=== PATIENT | male | born 1975 | race African-American/Black ===

== ENCOUNTER 2021-03-05 01:36 | Inpatient (IN) | payer MEDICAID ==
[~2021-03-05] VITALS: Ht 193 cm; Wt 74.8 kg
--- NOTE | 2021-03-05 01:56 | NUR ---
PT BIBRA C/O ABD PAIN WITH N/V/D X3 DAYS. PT AAOX4 BREATHING EVENLY AND UNLABORED. PT ATTACHED TO MONITOR AND POX. PT GIVEN BLANKET AND CALL LIGHT WITHIN REACH
[2021-03-05] MEDS ORDERED: HYDROMORPHONE 1 MG/1 ML DISP.SYRIN ONE (02:29)
[2021-03-05] MEDS ORDERED: ONDANSETRON HCL/PF 4 MG/2 ML VIAL ONE (02:29)
[2021-03-05] MEDS ORDERED: ONDANSETRON HCL/PF 4 MG/2 ML VIAL IVP ONE (02:30)
[2021-03-05] MEDS ORDERED: HYDROMORPHONE INJ 2 MG/ML DISP.SYRIN IV ONE (02:30)
[2021-03-05] MEDS ORDERED: IV NS 0.9% 1,000 ML BAG IV ONE (02:30)
--- NOTE | 2021-03-05 02:30 | NUR ---
BLOOD OBTAINED AND SENT TO LAB
[2021-03-05 02:48] LABS: EOSINOPHILS % (AUTO) 0.1 % (0.0-6.0); MONOCYTES # (AUTO) 1.2 K/uL (0.1-1.30); NEUTROPHILS # (AUTO) 4.6 K/uL (1.8-8.9); WHITE BLOOD COUNT (AUTO) 7.6 K/uL (4.3-11.0)
[2021-03-05 03:01] LABS: ALBUMIN 2.9 g/dL (3.4-5.0); BILIRUBIN,DIRECT 0.1 mg/dL (0.0-0.2); BILIRUBIN,TOTAL 0.3 mg/dL (0.2-1.0); CALCIUM, SERUM 8.4 mg/dL (8.5-10.1); CREATININE 2.4 mg/dL (0.6-1.3); POTASSIUM 3.4 mmol/L (3.5-5.1); TOTAL PROTEIN, SERUM 9.1 g/dL (6.4-8.2)
[2021-03-05] MEDS ORDERED: IV NS 0.9% 250 ML IV ONE (03:01)
[2021-03-05] MEDS ORDERED: IOHEXOL-300 100 ML VIAL IV ONE (03:01)
[2021-03-05 03:20] LABS: BASOPHILS % (AUTO) 0.2 % (0.0-2.0); HEMATOCRIT 48 % (39-51); HEMOGLOBIN 15.7 g/dL (13.5-17.5); LYMPHOCYTES # (AUTO) 1.9 K/uL (0.8-4.8); LYMPHOCYTES % (AUTO) 24.7 % (20.0-44.0); MEAN CORPUSCULAR HGB CONC 33 g/dl (31.0-36.0); MEAN CORPUSCULAR VOLUME 79 fL (80-96); MONOCYTES % (AUTO) 15.2 % (2.0-12.0); NEUTROPHILS % (AUTO) 59.8 % (43.0-81.0); PLATELET COUNT (AUTO) 136 K/uL (150-450); RED BLOOD CELL COUNT(AUTO) 6.07 MIL/uL (4.5-6.0)
--- NOTE | 2021-03-05 03:25 | NUR ---
RETURNED FROM RADIOLOGY
--- NOTE | 2021-03-05 04:10 | NUR ---
CALLED LAB FOR COVID SWAB
[2021-03-05 05:50] LABS: BILIRUBIN,URINE NEGATIVE (NEGATIVE); COLOR,URINE YELLOW (YELLOW); LEUKOCYTE ESTERASE ,URINE NEGATIVE (NEGATIVE); NITRITE, URINE NEGATIVE (NEGATIVE); PH,URINE 5.5 (5.0-8.0); PROTEIN,URINE 100 mg/dl (NEGATIVE); UGLUCOSE NEGATIVE (NEGATIVE); UROBILINOGEN,URINE 0.2 EU/dL (0.2)
[2021-03-05] MEDS: PIPERACILLIN /TAZOBACTAM 3.375 G in IV D5W 50 ML IV ONE ×2 (08:00→09:45)
--- NOTE | 2021-03-05 09:00 | NUR ---
DR SHEPARD ON THE PHONE WITH DR MCGRATH
[2021-03-05] MEDS ORDERED: MAGNESIUM HYDROXIDE 30 ML UDC PO PRN (09:30)
[2021-03-05] MEDS ORDERED: MAG HYDROX/AL HYDROX/SIMETH 30 ML UDC PO PRN (09:30)
[2021-03-05] MEDS ORDERED: Z GUARD REMEDY 4 OZ OINT TP PRN (09:30)
[2021-03-05] MEDS ORDERED: ONDANSETRON HCL/PF 4 MG/2 ML VIAL IVP PRN (09:30)
[2021-03-05] MEDS ORDERED: ZOLPIDEM TARTRATE 5 MG TABLET PO PRN (09:30)
[2021-03-05] MEDS: IV NS 0.9% 1,000 ML IV SCH ×2 (09:45→19:30)
[2021-03-05 10:18] LABS: BACTERIA,URINE Few /HPF (None Seen); SQUAMOUS EPITHELIAL CELL,UR Rare /HPF (None Seen)
[2021-03-05 10:19] LABS: WBC,URINE 0-4 /HPF (0-3)
[2021-03-05 10:20] LABS: FINE GRANULAR CASTS,URINE Rare /LPF (None Seen)
--- NOTE | 2021-03-05 11:50 | NUR ---
REQUESTED BED FROM NURSING SUP
[2021-03-05 12:12] LABS: BAND % (MANUAL) 3 % (0.0-5.0); LYMPHOCYTES % (MANUAL) 23 % (16-48); METAMYELOCYTES % 1 % (0-0); MONOCYTES % (MANUAL) 17 % (0-11.0); NEUTROPHILS % (MANUAL) 56 (42-76)
--- NOTE | 2021-03-05 13:24 | NUR ---
RAC #20G S/L DISLODGED. INSERTED RAC #18G S/L; PATENT AND INTACT.
[2021-03-05] MEDS: PIPERACILLIN /TAZOBACTAM 3.375 G in IV D5W 50 ML IV SCH ×2 (14:46→20:00)
--- NOTE | 2021-03-05 15:34 | NUR ---
PT NPO; PER MD'S ORDERS. EDUCATED PT TO STAY NPO. IVF NS 100ML/HR RAC #18G S/L INFUSING
--- NOTE | 2021-03-05 19:15 | NUR ---
PT SLEEPING, ATTACHED TO MONITOR AND POX. BREATHING EVENLY AND UNLABORED
[2021-03-05] MEDS ORDERED: PIPERACILLIN /TAZOBACTAM 3.375 G VIAL IV ONE (20:09)
--- NOTE | 2021-03-05 23:22 | NUR ---
Patient is resting comfortably in bed with eyes closed. Easily aroused. VSS
[2021-03-06] MEDS: PIPERACILLIN /TAZOBACTAM 3.375 G in IV D5W 50 ML IV SCH ×4 (02:00→20:24)
[2021-03-06] MEDS ORDERED: PIPERACILLIN /TAZOBACTAM 3.375 G VIAL IV ONE (02:08)
--- NOTE | 2021-03-06 03:15 | NUR ---
PT USED BEDSIDE COMMODE. NEEDS MET
[2021-03-06 05:01] LABS: BASOPHILS % (AUTO) 0.1 % (0.0-2.0); HEMATOCRIT 40 % (39-51); HEMOGLOBIN 13.1 g/dL (13.5-17.5); LYMPHOCYTES # (AUTO) 1.4 K/uL (0.8-4.8); MEAN CORPUSCULAR HGB CONC 33 g/dl (31.0-36.0); MEAN CORPUSCULAR VOLUME 79 fL (80-96); MONOCYTES # (AUTO) 1.4 K/uL (0.1-1.30); MONOCYTES % (AUTO) 23.1 % (2.0-12.0); NEUTROPHILS # (AUTO) 3.4 K/uL (1.8-8.9); NEUTROPHILS % (AUTO) 53.8 % (43.0-81.0); PLATELET COUNT (AUTO) 154 K/uL (150-450); RED BLOOD CELL COUNT(AUTO) 5.05 MIL/uL (4.5-6.0); WHITE BLOOD COUNT (AUTO) 6.3 K/uL (4.3-11.0)
[2021-03-06] MEDS: IV NS 0.9% 1,000 ML IV SCH ×2 (05:30→14:56)
[2021-03-06 05:37] LABS: CREATININE 1.8 mg/dL (0.6-1.3); MAGNESIUM 2.4 mg/dL (1.8-2.4); PHOSPHORUS 2.7 mg/dL (2.5-4.9); POTASSIUM 3.7 mmol/L (3.5-5.1)
--- NOTE | 2021-03-06 06:44 | NUR ---
pt in bed sleeping. nad noted.
--- NOTE | 2021-03-06 07:21 | NUR ---
GAVE REPORT TO GIOVANY LUU FOR PHILIP
--- NOTE | 2021-03-06 07:48 | NUR ---
PT ASSIGNED TO BED 109
--- NOTE | 2021-03-06 07:48 | NUR ---
Dwight santillan in [facility] - 03/06/21 at 0805 by RENETTA PT ASSIGNED TO [facility] [phone]
--- NOTE | 2021-03-06 08:05 | NUR ---
REPORT GIVEN TO SCOTTY
--- NOTE | 2021-03-06 09:22 | NUR ---
RN NOTE RECEIVED PATIENT FROM ER, REPORT TAKEN FROM LUIS M ADAIR. PATIENT AWAKE, ALERT/ORIENTED X 4, ABLE TO MAKE NEEDS KNOWN. BREATHING EVEN AND UNLABORED. NO SOB OR ANY RESPIRATORY DISTRESS NOTED. SKIN IS INTACT. VITAL SIGNS: TEMP-97.7, O2-100, HR-93, RR-18, BP-117/72. ALL SAFETY PRECAUTIONS IN PLACE. BED LOCKED, IN LOWEST POSITION WITH SIDE RAILS UP. CALL LIGHT WITHIN REACH OF PATIENT. WILL CONTINUE TO MONITOR.
[2021-03-06 12:00] VITALS: BP 108/58
[2021-03-06 13:37] LABS: BAND % (MANUAL) 8 % (0.0-5.0); LYMPHOCYTES % (MANUAL) 22 % (16-48); MONOCYTES % (MANUAL) 17 % (0-11.0); NEUTROPHILS % (MANUAL) 53 (42-76)
--- NOTE | 2021-03-06 18:46 | NUR ---
RN CLOSING NOTES PATIENT IN STABLE CONDITION THROUGHOUT SHIFT. NO SIGNIFCANT CHANGES THROUGHOUT SHIFT. PATIENT REMAINS ON ROOM AIR, TOLERATING WELL. BREATHING EVEN AND UNLABORED. NO SOB OR RESPIRATORY DISTRESS NOTED. IV ACCESS ON RIGHT FA #18, PATENT AND INTACT, INFUSING NS @ 100 ML/HR, TOLERATING WELL. PATIENT MAINTAINED ON NPO STATUS THROUGHOUT SHIFT. ALL DUE MEDS GIVEN ORDERED, TOLERATED WELL. ALL NEEDS MET. KEPT PATIENT CLEAN, DRY AND COMFORTABLE. APPLICABLE ISOLATION PRECAUTIONS MAINTAINED. ALL SAFETY MEASURES IMPLEMENTED. HOB ELEVATED. BED IN LOWEST POSITION, LOCKED WITH SIDE RAILS UP. CALL LIGHT WITHIN REACH OF PATIENT. WILL ENDORSE TO ONCOMING NURSE FOR CONTINUITY OF CARE.
--- NOTE | 2021-03-06 19:15 | NUR ---
RN OPENING NOTE PATIENT IN BED, EYES CLOSED. EASILY AWAKENED. A/O X 4. NPO STATUS AT THIS TIME. PATIENT -RE-EDUCATED ON NPO STATUS, POC. PATIENT KEEPS INSISTING ON HAVING SOME WATER OR FOOD. PATIENT ON RA, TOLERATING WELL. IVF RUN CAIT, IV ACCESS INTACT AND PATENT. SAFETY MEASURES IN PLACE: BED LOCKED AND IN LOWEST POSITION CALL LIGHT WITHINR EACH, SIDE RAILS UP. WILL MONITOR PATIENT CLOSELY.
[2021-03-06 20:00] VITALS: BP 129/79
[2021-03-07] MEDS: PIPERACILLIN /TAZOBACTAM 3.375 G in IV D5W 50 ML IV SCH ×4 (02:03→20:05)
[2021-03-07] MEDS: IV NS 0.9% 1,000 ML IV SCH ×3 (02:04→22:30)
[2021-03-07 04:00] VITALS: BP 107/67
--- NOTE | 2021-03-07 06:17 | NUR ---
RN NOTE WOUND CONSULT ORDERED. PATIENT REFUSED PICTURE TAKING OF WOUND AT THIS TIME. STILL UPSET HE IS NOT ABLE TO EAT.
--- NOTE | 2021-03-07 06:56 | NUR ---
RN CLOSING NOTE PATIENT IN BED, EYES CLOSED. EASILY AWAKENED. A/O X 4. NO SIGNIFICANT CHANGES IN PATIENT CONDITION. PATIENT STILL HAVING DIARRHEA, NO VOMITING. SAFETY MEASURES MAINTAINED. ALL NEEDS MET AND ATTENDED, ALL ORDERS CARRIED OUT. RFA 18 G PATENT AND INTACT WITH NS @ 100 ML/HR. WILL ENDORSE TO DAY SHIFT NURSE FOR PHILIP.
[2021-03-07 07:24] LABS: CREATININE 1.8 mg/dL (0.6-1.3); POTASSIUM 3.3 mmol/L (3.5-5.1); TOTAL PROTEIN, SERUM 7.2 g/dL (6.4-8.2)
--- NOTE | 2021-03-07 07:30 | NUR ---
RN OPENING NOTES RECEIVED PT IN BED AWAKE, A/O X4, ABLE TO MAKE NEEDS KNOWN, NO SIGNS OF ACUTE DISTRESS NOTED. ON ROOM AIR TOLERATING WELL, NO SOB NOTED. IV ACCESS ON RFA INTACT AND PATENT, NS @100 ML/HR RUNNING. NO C/O PAIN OR DISCOMFORT AT THIS TIME. ASKING FOR FOOD, EXPLAINED REGARDING NPO STATUS. SAFETY MEASURE IN PLACE, BED LOCKED AND IN LOWEST POSITION, SR UP X2, CALL LIGHT PLACED WITHIN EASY REACH. WILL CONTINUE TO MONITOR.
[2021-03-07 07:39] LABS: BASOPHILS % (AUTO) 0.2 % (0.0-2.0); EOSINOPHILS % (AUTO) 0.2 % (0.0-6.0); HEMATOCRIT 39 % (39-51); HEMOGLOBIN 12.6 g/dL (13.5-17.5); LYMPHOCYTES # (AUTO) 2.2 K/uL (0.8-4.8); LYMPHOCYTES % (AUTO) 27.8 % (20.0-44.0); MEAN CORPUSCULAR HGB CONC 33 g/dl (31.0-36.0); MEAN CORPUSCULAR VOLUME 78 fL (80-96); MONOCYTES # (AUTO) 2.4 K/uL (0.1-1.30); MONOCYTES % (AUTO) 31.2 % (2.0-12.0); NEUTROPHILS # (AUTO) 3.2 K/uL (1.8-8.9); NEUTROPHILS % (AUTO) 40.6 % (43.0-81.0); PLATELET COUNT (AUTO) 187 K/uL (150-450); RED BLOOD CELL COUNT(AUTO) 4.98 MIL/uL (4.5-6.0); WHITE BLOOD COUNT (AUTO) 7.8 K/uL (4.3-11.0)
[2021-03-07 08:17] LABS: LYMPHOCYTES % (MANUAL) 32 % (16-48); MONOCYTES % (MANUAL) 21 % (0-11.0); NEUTROPHILS % (MANUAL) 47 (42-76)
--- NOTE | 2021-03-07 08:55 | NUR ---
RN NOTES SEEN BY DR. MCGRATH WITH ORDER TO UPGRADE DIET TO FULL LIQUIDS, ORDER CARRIED OUT. PATIENT AWARE OF NEW DIET ORDER.
[2021-03-07] MEDS ORDERED: POTASSIUM CHLORIDE 10 MEQ TABLET.SA PO ONE (10:00)
[2021-03-07 11:06] LABS: *BASOS 1 % (Not Estab.); *BASOS, ABSOLUTE 0.1 x10E3/uL (0.0-0.2); *COMMENTS Note: (.); *EOS 0 % (Not Estab.); *HCT 40.8 % (37.5-51.0); *HGB 12.9 g/dL (13.0-17.7); *IMMATURE GRANULOCYTES 1 % (Not Estab.); *LYMPHOCYTES 26 % (Not Estab.); *LYMPHS, ABSOLUTE 1.7 x10E3/uL (0.7-3.1); *MCH 24.6 pg (26.6-33.0); *MCHC 31.6 g/dL (31.5-35.7); *MCV 78 fL (79-97); *MONOCYTES 18 % (Not Estab.); *MONOS, ABSOLUTE 1.2 x10E3/uL (0.1-0.9); *NEUTROPHILS 54 % (Not Estab.); *NEUTROPHILS, ABSOLUTE 3.5 x10E3/uL (1.4-7.0); *PLT 158 x10E3/uL (150-450); *RBC 5.24 x10E6/uL (4.14-5.80); *RDW 15.8 % (11.6-15.4)
[2021-03-07 12:00] VITALS: BP 111/67
[2021-03-07 13:03] LABS: CREATININE, URINE 57.4 MG/DL (30.0-125.0); URINE TOTAL PROTEIN 28.7 mg/dL (0-11.9)
[2021-03-07 13:12] LABS: BILIRUBIN,URINE NEGATIVE (NEGATIVE); COLOR,URINE YELLOW (YELLOW); LEUKOCYTE ESTERASE ,URINE NEGATIVE (NEGATIVE); NITRITE, URINE NEGATIVE (NEGATIVE); PROTEIN,URINE NEGATIVE (NEGATIVE); UGLUCOSE NEGATIVE (NEGATIVE); UROBILINOGEN,URINE 0.2 EU/dL (0.2)
[2021-03-07 13:17] LABS: BACTERIA,URINE Rare /HPF (None Seen); SQUAMOUS EPITHELIAL CELL,UR Few /HPF (None Seen); WBC,URINE NONE SEEN /HPF (0-3)
[2021-03-07 15:06] LABS: *% CD 4 POS. LYMPH 19.5 % (30.8-58.5); *% CD 8 POS. LYMPH 65.2 % (12.0-35.5); *ABSOLUTE CD 4 HELPER 332 /uL (359-1519); *ABSOLUTE CD 8 SUPPRESSOR 1108 /uL (109-897)
[2021-03-07 15:42] LABS: EOSINOPHIL,URINE None Seen
--- NOTE | 2021-03-07 18:40 | NUR ---
RN CLOSING NOTES PT RESTING IN BED, A/O X4, ABLE TO MAKE NEEDS KNOWN, NO SIGNS OF ACUTE DISTRESS NOTED. REMAINS ON ROOM AIR TOLERATING WELL, NO SOB NOTED. IV ACCESS ON RFA INTACT AND PATENT, NS @100 ML/HR RUNNING. ALL DUE MEDS GIVEN. NO C/O PAIN OR DISCOMFORT AT THIS TIME. DIET UPGRADED TO FULL LIQUIDS. NOTED PATIENT REMOVING IV LINE BY HIMSELF, ENCOURAGE TO CALL NURSE FOR ASSISTANCE WHEN NEEDED. SAFETY MEASURE IN PLACE, BED LOCKED AND IN LOWEST POSITION, SR UP X2, CALL LIGHT PLACED WITHIN EASY REACH. WILL ENDORSE TO NEXT SHIFT.
--- NOTE | 2021-03-07 19:30 | NUR ---
RN OPENING NOTE PATIENT IN BED, EYES CLOSED. EASILY AWAKENED. A/O X 4. PATIENT ON RA, TOLERATING WELL. PATIENT HAS A RFA 20 G INTACT AND PATENT, NS 100 ML/HR RUNNING. PATIENT DOES NOT COMPLAIN OF ANY PAIN AT THIS TIME. SAFETY MEASURES IN PLACE: BED LOCKED AND IN LOWEST POSITION CALL LIGHT WITHIN EACH, SIDE RAILS UP. WILL MONITOR PATIENT CLOSELY.
[2021-03-07 20:00] VITALS: BP 108/55
[2021-03-08] MEDS: PIPERACILLIN /TAZOBACTAM 3.375 G in IV D5W 50 ML IV SCH ×4 (01:52→20:15)
[2021-03-08 04:00] VITALS: BP 129/75
[2021-03-08] MEDS: IV NS 0.9% 1,000 ML IV SCH ×2 (06:30→17:17)
--- NOTE | 2021-03-08 06:47 | NUR ---
RN CLOSING NOTE PATIENT IN BED, EYES CLOSED. EASILY AWAKENED. A/O X 4. PATIENT ON RA, TOLERATING WELL. PATIENT HAS A RFA 20 G INTACT AND PATENT, NS 100 ML/HR RUNNING. PATIENT DOES NOT COMPLAIN OF ANY PAIN AT THIS TIME. SAFETY MEASURES IN PLACE: BED LOCKED AND IN LOWEST POSITION CALL LIGHT WITHIN EACH, SIDE RAILS UP. PCR STILL PENDING. ALL NEEDS MET AND ATTENDED. ALL ORDERS CARRIED OUT. WILL ENDORSE TO DAY SHIFT NURSE FOR PHILIP.
[2021-03-08 07:09] LABS: BASOPHILS % (AUTO) 0.2 % (0.0-2.0); EOSINOPHILS % (AUTO) 0.6 % (0.0-6.0); HEMATOCRIT 39 % (39-51); HEMOGLOBIN 12.5 g/dL (13.5-17.5); LYMPHOCYTES # (AUTO) 2.5 K/uL (0.8-4.8); LYMPHOCYTES % (AUTO) 25.3 % (20.0-44.0); MEAN CORPUSCULAR HGB CONC 32 g/dl (31.0-36.0); MEAN CORPUSCULAR VOLUME 79 fL (80-96); NEUTROPHILS # (AUTO) 4.4 K/uL (1.8-8.9); NEUTROPHILS % (AUTO) 43.9 % (43.0-81.0); PLATELET COUNT (AUTO) 241 K/uL (150-450); RED BLOOD CELL COUNT(AUTO) 4.89 MIL/uL (4.5-6.0)
--- NOTE | 2021-03-08 07:25 | NUR ---
RN OPENING NOTE RECEIVED PATIENT IN BED, EYES CLOSED. EASILY AWAKENED. A/O X 4. PATIENT IS BREATHING EVENLY AND ON RA, TOLERATING WELL. PATIENT HAS A RFA 20 G INTACT AND PATENT, NS 100 ML/HR RUNNING. PATIENT DOES NOT COMPLAIN OF ANY PAIN AT THIS TIME. SAFETY MEASURES IN PLACE: BED LOCKED AND IN LOWEST POSITION CALL LIGHT WITHIN EACH, SIDE RAILS UP. WILL
[2021-03-08 07:54] LABS: ALBUMIN 2.2 g/dL (3.4-5.0); BILIRUBIN,TOTAL 0.2 mg/dL (0.2-1.0); CALCIUM, SERUM 8.4 mg/dL (8.5-10.1); CREATININE 1.6 mg/dL (0.6-1.3); MAGNESIUM 2.1 mg/dL (1.8-2.4); PHOSPHORUS 2.9 mg/dL (2.5-4.9); POTASSIUM 3.8 mmol/L (3.5-5.1); TOTAL PROTEIN, SERUM 7.4 g/dL (6.4-8.2)
[2021-03-08 08:34] VITALS: BP 112/67
--- NOTE | 2021-03-08 11:30 | NUR ---
RN OPENING NOTE RECEIVED PATIENT IN BED AWAKE. A/O X 4. PATIENT IS BREATHING EVENLY AND ON RA, TOLERATING WELL. PATIENT HAS A RFA 20 G INTACT AND PATENT, NS 100 ML/HR RUNNING. PATIENT DOES NOT COMPLAIN OF ANY PAIN AT THIS TIME. SAFETY MEASURES IN PLACE: BED LOCKED AND IN LOWEST POSITION CALL LIGHT WITHIN EACH, SIDE RAILS UP. WILL PHILIP
--- NOTE | 2021-03-08 13:22 | NUR ---
RN NOTE PT COMPLAIN OF LOWER BACK PAIN, SHARP PAIN, 8 OUT OF 10. ACETAMINOPHEN PO 325 X2 PROVIDED. WILL REASSESS AND CONTINUE OF CARE.
[2021-03-08] MEDS: ACETAMINOPHEN 325 MG TABLET PO PRN (13:23)
[2021-03-08 13:26] LABS: BAND % (MANUAL) 6 % (0.0-5.0); EOSINOPHILS % (MANUAL) 2 % (0-4); LYMPHOCYTES % (MANUAL) 23 % (16-48); METAMYELOCYTES % 1 % (0-0); MONOCYTES % (MANUAL) 28 % (0-11.0); NEUTROPHILS % (MANUAL) 40 (42-76)
--- NOTE | 2021-03-08 14:00 | NUR ---
RN NOTE REASSESS PT FOR PAIN, ACETAMINOPHEN WAS EFFECTIVE, PT VERBALIZE PAIN 3 OUT OF 10
[2021-03-08 16:00] VITALS: BP 127/70
--- NOTE | 2021-03-08 16:57 | NUR ---
RN NOTE REPORT HGB 7.[address] FERRELL AND DR MCMAHON, WILL GIVE 1 UNIT PRBC DURING HD.
--- NOTE | 2021-03-08 19:00 | NUR ---
MS RN OPENING NOTE RECEIVED PT IN BED, AWAKE AND RESTING. PT IS A/O X4. STABLE ON ROOM AIR. NO SOB OR RESPIRATORY DISTRESS NOTED, NO C/O PAIN AT THIS TIME. RESPIRATIONS EVEN AND UNLABORED. IV ACCESS NOTED IN RIGHT FOREARM G# 20. NS INFUSING @ 100ML/HR. FALL AND SAFETY MEASURES IN PLACE AND MAINTAINED AT ALL TIMES. BED ALARM ON, BED IN LOW AND LOCKED POSITION, HOB ELEVATED TO SEMI FOWLERS POSITION, CALL LIGHT AND TABLE WITHIN REACH. SIDE RAILS UP X2. WILL CONTINUE WITH PLAN OF CARE.
--- NOTE | 2021-03-08 19:13 | NUR ---
RN OPENING NOTE REMAIN PATIENT IN BED AWAKE. A/O X 4. PATIENT IS BREATHING EVENLY AND ON RA, TOLERATING WELL. PATIENT HAS A RFA 20 G INTACT AND PATENT, NS 100 ML/HR RUNNING. PATIENT DOES NOT COMPLAIN OF ANY PAIN AT THIS TIME. SAFETY MEASURES IN PLACE: BED LOCKED AND IN LOWEST POSITION CALL LIGHT WITHIN EACH, SIDE RAILS UP. WILL PHILIP
[2021-03-08 20:00] VITALS: BP 111/71
[2021-03-09] VITALS: BP 129/82
[2021-03-09] MEDS: PIPERACILLIN /TAZOBACTAM 3.375 G in IV D5W 50 ML IV SCH ×4 (02:52→20:41)
[2021-03-09] MEDS: IV NS 0.9% 1,000 ML IV SCH ×2 (03:47→13:05)
--- NOTE | 2021-03-09 06:30 | NUR ---
RN CLOSING NOTE PT REMAINED STABLE THROUGHOUT SHIFT. WILL ENDORSE TO AM RN FOR PHILIP.
[2021-03-09 07:05] LABS: BASOPHILS % (AUTO) 0.2 % (0.0-2.0); EOSINOPHILS % (AUTO) 0.9 % (0.0-6.0); HEMATOCRIT 41 % (39-51); HEMOGLOBIN 12.9 g/dL (13.5-17.5); LYMPHOCYTES # (AUTO) 2.4 K/uL (0.8-4.8); LYMPHOCYTES % (AUTO) 19.9 % (20.0-44.0); MEAN CORPUSCULAR HGB CONC 32 g/dl (31.0-36.0); MEAN CORPUSCULAR VOLUME 79 fL (80-96); MONOCYTES # (AUTO) 1.5 K/uL (0.1-1.30); MONOCYTES % (AUTO) 12.5 % (2.0-12.0); NEUTROPHILS % (AUTO) 66.5 % (43.0-81.0); PLATELET COUNT (AUTO) 293 K/uL (150-450); RED BLOOD CELL COUNT(AUTO) 5.14 MIL/uL (4.5-6.0); WHITE BLOOD COUNT (AUTO) 12.1 K/uL (4.3-11.0)
[2021-03-09 07:11] LABS: CALCIUM, SERUM 8.6 mg/dL (8.5-10.1); CREATININE 1.7 mg/dL (0.6-1.3); POTASSIUM 3.7 mmol/L (3.5-5.1)
--- NOTE | 2021-03-09 07:39 | NUR ---
MS RN OPENING NOTES RECEIVED PT IN BED ASLEEP, EASY TO AROUSE. ALERT AND ORIENTED X4. NO S/SX OF DISTRESS NOTED. NO SOB. BREATHING EVEN AND UNLABORED, TOLERATING WELL ON ROOM AIR ACCESS ON RFA#20 INTACT AND PATENT. SAFETY MEASURE IN PLACE WITH BED LOCKED AND IN LOWEST POSITION, SR UP X2, CALL LIGHT PLACED WITHIN EASY REACH. WILL CONTINUE TO MONITOR PT FOR CHANGES IN CONDITION.
[2021-03-09 08:00] VITALS: BP 129/82
[2021-03-09] MEDS: ACETAMINOPHEN 325 MG TABLET PO PRN (08:16)
--- NOTE | 2021-03-09 09:17 | NUR ---
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 DEFER TO PMD FOR LESION. RN DISCUSSED WITH MD. DISCUSSED SKIN PROTECTION WITH NURSING STAFF. MD IN AGREEMENT WITH PLAN OF CARE.
--- NOTE | 2021-03-09 09:30 | NUR ---
RN NOTE DR. MCGRATH MADE AWARE OF PERIANAL LESION WITH NO NEW ORDERS.
[2021-03-09 16:00] VITALS: BP 118/72
[2021-03-09 16:07] LABS: *SPE A/G RATIO 0.6 (0.7-1.7); *SPE ALPHA-1-GLOBULIN 0.4 g/dL (0.0-0.4); *SPE ALPHA-2-GLOBULIN 0.8 g/dL (0.4-1.0); *SPE M-SPIKE Not Observed g/dL (Not Observed)
--- NOTE | 2021-03-09 18:48 | NUR ---
MS RN CLOSING NOTES PT IN BED ASLEEP, EASY TO AROUSE. ALERT AND ORIENTED X4. NO S/SX OF DISTRESS NOTED. NO SOB. BREATHING EVEN AND UNLABORED, TOLERATING WELL ON ROOM AIR ACCESS ON RFA#20 INTACT AND PATENT WITH NS RUNNING 100MLS/HR. ALL NEED MET THROUGHOUT SHIFT. SAFETY MEASURE MAINTAINED WITH BED LOCKED AND IN LOWEST POSITION, SR UP X2, CALL LIGHT PLACED WITHIN EASY REACH. WILL ENDORSE CONTINUITY OF CARE TO ONCOMING SHIFT.
--- NOTE | 2021-03-09 19:35 | NUR ---
RN OPENING NOTES, RECEIVED PT IN BED ALERT, ORIENTED X4, VERBALLY RESPONSIVE. NO SOB, NO CHEST CONGESTION, BREATHING EVEN AND UNLABORED. ON ROOM AIR. IV ACCESS ON RFA#20 INTACT AND PATENT. NO S/S OF INFILTRATIONS. NO C/O PAIN OR DISCOMFORT. ALL SAFETY MEASURES IN PLACE. BED IN LOW POSITION AND LOCKED. IN LOWEST POSITION W/ SR UP X2, CALL LIGHT PLACED WITHIN EASY REACH. WILL CONTINUE TO MONITOR
[2021-03-09 20:00] VITALS: BP 128/74
[2021-03-10] MEDS: IV NS 0.9% 1,000 ML IV SCH ×3 (00:20→20:27)
[2021-03-10] MEDS: PIPERACILLIN /TAZOBACTAM 3.375 G in IV D5W 50 ML IV SCH ×4 (02:00→20:55)
[2021-03-10 04:00] VITALS: BP 114/60
--- NOTE | 2021-03-10 06:53 | NUR ---
RN CLOSING NOTES, PT IN BED AWAKE, ALERT, ORIENTED X4, VERBALLY RESPONSIVE. NO SOB, NO CHEST CONGESTION, BREATHING EVEN AND UNLABORED. ON ROOM AIR, O2 SAT 96%. IV ACCESS ON RFA#20 INTACT AND PATENT. NO S/S OF INFILTRATIONS. RUNNING 100ML/HR. NO C/O PAIN OR DISCOMFORT. NO ACUTE DISTRESS. ALL DUE MEDS GIVEN ORDER AND TOLERATED WELL. ALL SAFETY MEASURES IN PLACE. BED IN LOW POSITION AND LOCKED. SR UP X2, CALL LIGHT PLACED WITHIN REACH. WILL ENDORSE TO MORNING SHIFT NURSE.
[2021-03-10 07:06] LABS: BASOPHILS % (AUTO) 0.3 % (0.0-2.0); EOSINOPHILS % (AUTO) 1.3 % (0.0-6.0); HEMATOCRIT 37 % (39-51); HEMOGLOBIN 11.6 g/dL (13.5-17.5); LYMPHOCYTES # (AUTO) 2.3 K/uL (0.8-4.8); LYMPHOCYTES % (AUTO) 16.7 % (20.0-44.0); MEAN CORPUSCULAR HGB CONC 32 g/dl (31.0-36.0); MEAN CORPUSCULAR VOLUME 79 fL (80-96); MONOCYTES # (AUTO) 1.8 K/uL (0.1-1.30); MONOCYTES % (AUTO) 12.7 % (2.0-12.0); NEUTROPHILS # (AUTO) 9.5 K/uL (1.8-8.9); PLATELET COUNT (AUTO) 342 K/uL (150-450); RED BLOOD CELL COUNT(AUTO) 4.61 MIL/uL (4.5-6.0); WHITE BLOOD COUNT (AUTO) 13.8 K/uL (4.3-11.0)
--- NOTE | 2021-03-10 08:00 | NUR ---
MS RN NOTE PT IN BED AWAKE, ALERT, ORIENTED X4, VERBALLY RESPONSIVE. NO SOB, NO CHEST CONGESTION, BREATHING EVEN AND UNLABORED. ON ROOM AIR, O2 SAT 98%. IV ACCESS ON RFA#20 INTACT AND PATENT. NO S/S OF INFILTRATIONS. RUNNING [id number]. NO C/O PAIN OR DISCOMFORT. NO ACUTE DISTRESS. ALL DUE MEDS GIVEN ORDER AND TOLERATED WELL. ALL SAFETY MEASURES IN PLACE. BED IN LOW POSITION AND LOCKED. SR UP X2, CALL LIGHT PLACED WITHIN REACH. WILL
[2021-03-10 08:03] LABS: CALCIUM, SERUM 8.7 mg/dL (8.5-10.1); CREATININE 1.5 mg/dL (0.6-1.3); POTASSIUM 4.2 mmol/L (3.5-5.1)
[2021-03-10 09:34] VITALS: BP 129/81
--- NOTE | 2021-03-10 11:00 | NUR ---
ms rn note . all needs attended not in distress
[2021-03-10 12:00] VITALS: BP 129/81
--- NOTE | 2021-03-10 14:53 | NUR ---
ms rn note rounds made spoke with dr danielle notified that wbc 13.8 will cont to monitor closely
--- NOTE | 2021-03-10 15:07 | NUR ---
"SS Consult: SS Consult requested for homelessness & drug abuse. The pt. is a 45-year-old Black male patient who was admitted for Colitis. Upon SS consult, the pt. is A&O x 4 and makes good eye contact. The pt. appears unkempt and presents with euthymic mood and affect. The pt. remained calm & cooperative throughout assessment. Pt. denies current SI/HI and denies hallucinations. SW explored pt.s living situation. Per the pt., he has been experiencing homelessness for some time. Pt. states he has no support system. SW explored pt.s drug & ETOH use. Pt. states he uses Methamphetamine & Tobacco last used over than a week ago. SW explored pt.s mental health Hx. Pt. denies any Hx. with mental health issues. Per pt. he is ambulatory & independent with all his ADLs. Pt. asked for clothing & HIV resources upon DC. SS will follow up. Plan: Pt. signed homeless waiver & it was placed in the pt.s chart. SW provided homeless resources to pt. and he accepted them. Pt. is agreeable to halfway placement. [facility] provided bus route to [facility] as they take walk ins daily at 4:30pm. Year-round shelters: [facility] [address] [place] [address] ; [facility] [place] [address] [place] [address]; [facility] Ez[facility]gle[facility]. [facility] [address] Winter Shelters: SPA 2 | [facility] MacycProvider: [facility] [place] Address: Confidential (call for location ) Population Served: Coed # of Beds: 57 SPA 4 | [facility] Provider: [facility] Address: [address] [place] [address], [address] # of Beds: 49 Population Served: Coed SPA 6 | [facility] Provider: [facility] Address: [id number] [place] [address], [address] # of Beds: 49 Population Served: Coed [facility] Provider: [facility] Address: [address] [facility] [address] # of Beds: 20 Population Served: Women RICHAR Facility Provider: [facility] Address: [address] [facility] [address] # of Beds: 30 Population Served: Women SPA 8 | [facility] Provider: [facility] [place] Address: [address] [address] # of Beds: 65 Population Served: Coed Hygiene: [facility]: [address] [place] [address]. [place] ; [place] [facility] [address] [facility] ; [facility] [address] [facility] [place] . Food Resources: [place] [facility] at [facility]- [address] [facility]; Meet Each Need with Dignity ([facility]) [address] [facility] [place]; [facility] Food Pantry [address] [facility]; [facility] [address] [facility]. Mental Health resources provided: [facility] [address] [place], [place] [phone] ; [facility] [address] [facility] [address], [place], [place] [phone] ; [facility] Sanders [facility] [address], [place] [phone] ; [facility] [address] [place], [place] [address] Healthcare Clinics: [facility] [address] [facility], [address] [place]. [place] ; [facility] [address] [facility] [facility] [address] [place] [address]; [facility] [address] [facility] [place] [phone]) [phone] Counseling--Outpatient [facility] [address], [place] [address] (Specializes in in-depth psychotherapy for emotional distress: anxiety, depression, interpersonal conflicts, life transitions, childhood abuse) [facility] [address] [place] [address] (Assist with solving problem marital difficulties, separation & divorce, aging parents, & grief, chronic & terminal illness) [facility] [address] [place] [address] (Deal with loss & grief, anxiety, marital difficulties) Homebound/Mental Health Services [address] [facility] [address] [place] [address] (Provide in-home mental services to people who are incapable of leaving their homes) [facility] for Needs of the Elderly Senior Service/Resource Center [address] [place] [address] [facility] [address] [place], [place] [phone] PSYCHIATRIC OUTPATIENT SERVICES [facility] Partial Hospitalization and Intensive Outpatient Program (Managed Care and [place] Only)[address] [facility] [phone] [facility] Partial Hospitalization and Outpatient [id number] [facility] [address] [place], [place] [phone] [facility] Mental Health [place] [id number] [facility] [address] [place], [place] [phone] [facility] Partial Hospitalization and Outpatient [id number] [place], [phone] Substance Abuse resources provided included: [facility] Substance Abuse Self-Helpline (SAS) ; [facility]LP [address] [facility]. [place] [phone] ; [facility] [address] [facility] [address] ; [facility] [address] [facility] [place] [phone] ; [facility] [address] [address] ; [facility] [address] [facility] [address] ; [facility] [address] [facility] [phone] ; [facility] Substance Abuse Helpline(SAS)-[facility] ; [facility] Family Counseling ; [facility]; [facility] [place]; [facility] [place]; [facility] [place]; [place] [facility] [place]; [facility]; [facility] [place]; [facility], [facility]. [facility]; Alcoholics Anonymous -SFV; Wq-Bygy-Vynmddy ; Marijuana Anonymous -[facility]; Narcotics Anonymous www.na.org;"
--- NOTE | 2021-03-10 15:17 | NUR ---
FOLLOWUP RESULT PCR PER LAB STILL PENDING MD MADE AWARE.
[2021-03-10 16:00] VITALS: BP 129/81
--- NOTE | 2021-03-10 16:27 | NUR ---
PER [facility] COVID NEGATIVE.
--- NOTE | 2021-03-10 18:40 | NUR ---
MS RN NOTE TRANSFERRED TO ROOM 309 WITH STABLE CONDITION BY BED, REPORT GIVEN TO LAUREN WISE
--- NOTE | 2021-03-10 18:52 | NUR ---
MS RN RECEIVING/CLOSING NOTES RECEIVED A TRANSFER FROM [facility]. PATIENT MEDICALLY STABLE AT THIS TIME, A/O X4. VITAL SIGNS STABLE; BP: 116/70 HR 106 TEMP: 98.4 RR 18 O2 97% ON RA PATIENT IS ON RA; BREATHING EVEN AND UNLABORED. IV ACCESS ON RFA G # 20 PRESENT AND INTACT. SAFETY PRECAUTIONS IN PLACE; BED IN LOW POSITION AND LOCKED, RAILS UP X2, CALL LIGHT WITHIN REACH. WILL CONTINUE TO MONITOR PATIENT.
--- NOTE | 2021-03-10 19:10 | NUR ---
RN opening notes Received Pt from morning nurse. Pt is sitting in bed comfortably watching TV. Pt is alert and orinetedX4. Respiration is normal in room air. No SOB. No S/s of distress noted. IV site at RFA# 20 is clean, intact and infusing well NS@ 100ml/hr. Pt is able to ambulates with a steady gait. Safety precautions is maintained. bed at low position, brakes locked, side rails upX2, urinal at the bedside and call light is within reach. Will continue to monitor.
[2021-03-10 20:00] VITALS: BP 137/80
[2021-03-10 20:33] VITALS: BP 137/80
--- NOTE | 2021-03-10 22:37 | NUR ---
RN notes Pt is having insomnia and requesting a sleeping pill. Administered ambien 5 mg/po/prn as ordered for sleeping. Safety precautions is maintained. Will continue to monitor.
[2021-03-11] MEDS: PIPERACILLIN /TAZOBACTAM 3.375 G in IV D5W 50 ML IV SCH ×4 (02:05→20:21)
[2021-03-11] MEDS: IV NS 0.9% 1,000 ML IV SCH ×2 (05:58→18:17)
[2021-03-11 06:27] LABS: BASOPHILS % (AUTO) 0.3 % (0.0-2.0); EOSINOPHILS % (AUTO) 2.2 % (0.0-6.0); HEMATOCRIT 36 % (39-51); HEMOGLOBIN 11.6 g/dL (13.5-17.5); LYMPHOCYTES # (AUTO) 2.3 K/uL (0.8-4.8); LYMPHOCYTES % (AUTO) 16.9 % (20.0-44.0); MEAN CORPUSCULAR HGB CONC 32 g/dl (31.0-36.0); MEAN CORPUSCULAR VOLUME 79 fL (80-96); MONOCYTES # (AUTO) 1.8 K/uL (0.1-1.30); MONOCYTES % (AUTO) 13.2 % (2.0-12.0); NEUTROPHILS # (AUTO) 9.2 K/uL (1.8-8.9); NEUTROPHILS % (AUTO) 67.4 % (43.0-81.0); PLATELET COUNT (AUTO) 350 K/uL (150-450); RED BLOOD CELL COUNT(AUTO) 4.58 MIL/uL (4.5-6.0); WHITE BLOOD COUNT (AUTO) 13.7 K/uL (4.3-11.0)
--- NOTE | 2021-03-11 06:40 | NUR ---
RN closing notes Pt is resting in bed comfortably. Pt is alert and orinetedX4. Respiration is normal in room air. No SOB. No S/s of distress noted. IV site at RFA# 20 is clean, intact and infusing well NS@ 100ml/hr. VS is stable. afebrile. routine meds were given as ordered. Kept Pt clean, dry and comfortable. Safety precautions is maintained. bed at low position, brakes locked, side rails upX2, urinal at the bedside and call light is within reach. Will endorse to am nurse for PHILIP.
[2021-03-11 06:55] LABS: CALCIUM, SERUM 8.3 mg/dL (8.5-10.1); CREATININE 1.6 mg/dL (0.6-1.3); MAGNESIUM 2.1 mg/dL (1.8-2.4); PHOSPHORUS 3.3 mg/dL (2.5-4.9); POTASSIUM 4.1 mmol/L (3.5-5.1)
--- NOTE | 2021-03-11 07:15 | NUR ---
WOUND CARE CONSULT: RECEIVED 2ND WOUND CONSULT FOR PERIANAL LESION, PRESENT ON ADMISSION. PT WAS EXAMINED PREVIOUSLY AND MD AWARE OF LESION. RECOMMEND SURGICAL CONSULT. DR ZHANG TO BE CONSULTED THIS AM. MD IN AGREEMENT WITH PLAN OF CARE.
--- NOTE | 2021-03-11 07:30 | NUR ---
MS RN OPENING NOTES RECEIVED PATIENT ON BED, AWAKE AND A/O X4. ON ROOM AIR BREATHING EVENLY AND UNLABORED. NO SOB NOTED. NOT IN DISTRESS. WITH NO COMPLAINTS OF PAIN OR DISCOMFORT AT THIS TIME. WITH IV ACCESS AT RIGHT FOREARM G20 WITH IVF NS AT 100ML/HR INFUSING WELL. IV SITE IS PATENT AND INTACT. SAFETY MEASURES IN PLACED. CALL LIGHT WITHIN REACH. BED ON LOWEST AND LOCKED POSITION, SIDE RAILS UP X2. WILL CONTINUE TO MONITOR.
[2021-03-11 08:00] VITALS: BP_SYST 106; BP_SYST 111; BP_DIAS 56; BP_DIAS 58
[2021-03-11 15:27] LABS: THYROID STIMULATING HORMONE 1.167 uIU/mL (0.358-3.74)
[2021-03-11 16:00] VITALS: BP 126/70
--- NOTE | 2021-03-11 18:28 | NUR ---
MS RN CLOSING NOTES PATIENT RESTING ON BED AND A/O X4. ON ROOM AIR BREATHING EVENLY AND UNLABORED. NO SOB NOTED. NOT IN DISTRESS. WITH NO COMPLAINTS OF PAIN OR DISCOMFORT AT THIS TIME. WITH IV ACCESS AT RIGHT FOREARM G20 WITH IVF NS AT 100ML/HR INFUSING WELL. IV SITE IS PATENT AND INTACT. SAFETY MEASURES IN PLACED. CALL LIGHT WITHIN REACH. BED ON LOWEST AND LOCKED POSITION, SIDE RAILS UP X2. WILL ENDORSE TO NEXT SHIFT FOR PHILIP.
--- NOTE | 2021-03-11 19:48 | NUR ---
RN OPENING NOTES: RECEIVED PATIENT AWAKE IN BED, BED IN LOW POSITION, CALL LIGHTS WITHIN REACH, NO COMPLAIN OF PAIN AND DISCOMFORT AT THIS TIME. PATIENT IS A/O X4 AMBULATORY ABLE TO MAKE NEEDS KNOWN WITH IV LINE AT RFA#20 WITH ONGOING NSS@100ML PER HOUR INFUSING WELL, PATIENT KEPT CLEAN AND DRY, ALL NEEDS MET,WILL CONTINUE TO MONITOR.
[2021-03-11 20:00] VITALS: BP 119/65
[2021-03-11 21:29] VITALS: BP 119/65
[2021-03-12] VITALS: BP 146/70
[2021-03-12] MEDS: IV NS 0.9% 1,000 ML IV SCH (01:39)
[2021-03-12] MEDS: PIPERACILLIN /TAZOBACTAM 3.375 G in IV D5W 50 ML IV SCH ×2 (02:05→08:20)
[2021-03-12 06:07] LABS: BASOPHILS % (AUTO) 0.2 % (0.0-2.0); EOSINOPHILS % (AUTO) 1.5 % (0.0-6.0); HEMATOCRIT 34 % (39-51); HEMOGLOBIN 10.9 g/dL (13.5-17.5); LYMPHOCYTES # (AUTO) 2.1 K/uL (0.8-4.8); LYMPHOCYTES % (AUTO) 18.2 % (20.0-44.0); MEAN CORPUSCULAR HGB CONC 32 g/dl (31.0-36.0); MEAN CORPUSCULAR VOLUME 79 fL (80-96); MONOCYTES # (AUTO) 1.5 K/uL (0.1-1.30); NEUTROPHILS # (AUTO) 7.8 K/uL (1.8-8.9); NEUTROPHILS % (AUTO) 67.1 % (43.0-81.0); PLATELET COUNT (AUTO) 371 K/uL (150-450); RED BLOOD CELL COUNT(AUTO) 4.29 MIL/uL (4.5-6.0); WHITE BLOOD COUNT (AUTO) 11.7 K/uL (4.3-11.0)
[2021-03-12 06:44] LABS: CALCIUM, SERUM 8.2 mg/dL (8.5-10.1); CREATININE 1.6 mg/dL (0.6-1.3); MAGNESIUM 1.9 mg/dL (1.8-2.4); PHOSPHORUS 3.8 mg/dL (2.5-4.9); POTASSIUM 4.1 mmol/L (3.5-5.1)
--- NOTE | 2021-03-12 06:55 | NUR ---
RN CLOSING NOTES: PATIENT SLEEP IN BED COMFORTABLY, BED IN LOW POSITION, CALL LIGHTS WITHIN REACH, NO COMPLAIN OF PAIN AND DISCOMFORT AT THIS TIME, PATIENT ON NPO , A/O X3 AMBULATORY WITH SUPERVISION, WITH IV LINE AT RFA#20 WITH ONGOING [id number] INFUSING WELL, PATIENT KEPT CLEAN AN DRY, ALL NEEDS MET, ENDORSE TO INCOMING SHIFT.
[2021-03-12 08:00] VITALS: BP 117/66
[2021-03-12 09:07] LABS: IMMUNOGLOBULIN A, SERUM 271 mg/dL (90-386); IMMUNOGLOBULIN G, SERUM 2002 mg/dL (603-1613); IMMUNOGLOBULIN M, SERUM 229 mg/dL (20-172)
--- NOTE | 2021-03-12 09:45 | NUR ---
Patient left facility, who removed IV before leave facility. Refused sign on AMA form. Informed MD, incident report is done.
== END 2021-03-12 09:45 | disposition left against medical advice (07) | DRG 249 ==
LOC: EDBD 01:41 → ER 01:41 → TRANSITION 13:37 → MEDSG1 03-06 08:13 → MED 03-10 18:15
PROVIDERS: ADMIT Family Medicine; ATTEND Student in an Organized Health Care Education/Training Program
DX: K52.9 Noninfective gastroenteritis and colitis, unspecified (principal); N17.0 Acute kidney failure with tubular necrosis; E44.0 Moderate protein-calorie malnutrition; E77.8 Other disorders of glycoprotein metabolism; K56.609 Unspecified intestinal obstruction, unspecified as to partial versus complete obstruction; F15.10 Other stimulant abuse, uncomplicated; D50.9 Iron deficiency anemia, unspecified; K56.7 Ileus, unspecified; E87.6 Hypokalemia; N18.9 Chronic kidney disease, unspecified; Z20.822 Contact with and (suspected) exposure to COVID-19; B19.20 Unspecified viral hepatitis C without hepatic coma; Z98.890 Other specified postprocedural states; Z53.29 Procedure and treatment not carried out because of patient's decision for other reasons; Z59.00 Homelessness unspecified; Z72.0 Tobacco use; R73.9 Hyperglycemia, unspecified; E88.09 Other disorders of plasma-protein metabolism, not elsewhere classified; E86.9 Volume depletion, unspecified; D72.821 Monocytosis (symptomatic); S31.501A Unspecified open wound of unspecified external genital organs, male, initial encounter; X58.XXXA Exposure to other specified factors, initial encounter; Y92.9 Unspecified place or not applicable
CPT/HCPCS: 36415; 80048-TC; 80053-TC; 80074; 80076-TC; 81001; 82550-TC; 82570-TC; 82728-TC; 82784; 83540-TC; 83690-TC; 83735-TC; 83970; 84100-TC; 84155; 84155-TC; 84165; 84300-TC; 84443-TC; 85025-TC; 85730-TC; 86334; 86360; 87040-TC; 87081-TC; A6403; C9803; G0378; J1170; J2405; J2543; J7030; J7050; J7060; Q9967; U0003